=== PATIENT | female | born 1975 | race Two or more races ===

== ENCOUNTER 2020-04-09 10:27 | Outpatient (CLI) | payer OTHER | END 2020-04-09 10:32 | disposition home or self-care (01) | LOC: SONOGRAMA 10:27 | PROVIDERS: ATTEND Pathology Anatomic Pathology & Clinical Pathology | DX: E04.1 Nontoxic single thyroid nodule (principal) ==

== ENCOUNTER 2021-06-09 09:24 | Emergency (ER) | payer OTHER ==
[~2021-06-09] VITALS: Ht 170.2 cm; Wt 111.1 kg
[2021-06-09] MEDS ORDERED: CLONAZEPAM1 MG PO (09:45)
[2021-06-09] MEDS ORDERED: TRAZODONE HCL100 MG PO (09:45)
[2021-06-09] MEDS ORDERED: AMBIEN10 MG PO (09:45)
== END 2021-06-09 10:02 | disposition home or self-care (01) ==
LOC: ER 09:24
DX: R07.89 Other chest pain (principal)

== ENCOUNTER 2022-01-08 10:04 | Emergency (ER) | payer OTHER ==
[~2022-01-08] VITALS: Ht 170.2 cm; Wt 114.8 kg
[~2022-01-08 10:04] MED LIST: AMBIEN10 MG PO; CLONAZEPAM1 MG PO; TRAZODONE HCL100 MG PO
== END 2022-01-08 13:07 | disposition home or self-care (01) ==
LOC: ER 10:04
DX: R30.0 Dysuria (principal); N76.0 Acute vaginitis; Z88.2 Allergy status to sulfonamides